=== PATIENT | male | born 1995 | race Two or more races ===

== ENCOUNTER 2020-03-15 19:08 | Emergency (ER) | payer OTHER ==
[~2020-03-15] VITALS: Ht 188 cm; Wt 80.0 kg
--- NOTE | 2020-03-15 19:18 | NUR ---
PT BIB FOR SHOULDER SEPERATION OF RIGHT SHOULDER. PT WAS CUTTING A GARAGE DOOR. PT SCHEDULED FOR SURGERY NEXT WEEK. PT RECIEVED 100 MCG FENTYNAL MOTORIZED SQUAD LIEUTENANT. PT APPEARS COMFORTABLE. VSS. CALL LIGHT IN REACH
[2020-03-15] MEDS ORDERED: IBUPROFEN 600 MG TABLET PO ONE (19:30)
[2020-03-15] MEDS ORDERED: IBUPROFEN 600 MG TABLET ONE (19:34)
--- NOTE | 2020-03-15 19:40 | NUR ---
pt medicated and given an ice pack. Xray at bedside
--- NOTE | 2020-03-15 20:51 | NUR ---
Patient given discharge instructions and they have confirmed that they understand the instructions. Patient ambulatory with steady gait.
[2020-03-15 20:52] VITALS: BP 113/76
== END 2020-03-15 20:54 | disposition home or self-care (01) ==
LOC: ED 19:30
DX: S43.004A Unspecified dislocation of right shoulder joint, initial encounter (principal); X58.XXXA Exposure to other specified factors, initial encounter; Y93.89 Activity, other specified; Y92.69 Other specified industrial and construction area as the place of occurrence of the external cause; Y99.0 Civilian activity done for income or pay
CPT/HCPCS: 29125; 99283